=== PATIENT | female | born 1990 ===

== ENCOUNTER 2019-11-02 02:18 | Emergency (ER) | payer OTHER ==
[~2019-11-02] VITALS: Ht 157.5 cm; Wt 58.1 kg
[~2019-11-02 02:18] MED LIST: ALPRAZOLAM0.5 MG PO; CLONAZEPAM0.5 MG PO; FLEXERIL10 MG PO; LEVSIN/SL0.125 MG PO; MACROBID 100 M100 MG PO; MEDROL4 MG PO; PRILOSEC20 MG PO; PROTONIX40 MG PO; PYRIDIUM200 MG PO; SEPTRA DS TABLE1 TAB PO; SKELAXIN800 MG PO; TRAMADOL HCL-AP1 TAB PO; TYLENOL W-CODEI1 TAB PO; TYLENOL-CODEINE1 TAB PO; ZANTAC300 MG PO; ZEGERID 20 MG C1 CAP PO; ZOFRAN4 MG PO; ZOLOFT50 MG PO
[2019-11-02] MEDS ORDERED: INSULIN SYRING1 EA29 (02:30)
[2019-11-02] MEDS ORDERED: DOLOGESIC 500-1 EACH PO ×2 (06:49→06:51)
[2019-11-02] MEDS ORDERED: NASAL MIST126 ML NASAL (06:50)
== END 2019-11-02 07:06 ==
LOC: ER 02:18
DX: M54.5 Low back pain (principal)

== ENCOUNTER 2020-04-10 01:56 | Emergency (ER) | payer OTHER ==
[~2020-04-10] VITALS: Ht 154.9 cm; Wt 61.2 kg
[~2020-04-10 01:56] MED LIST changes: +DOLOGESIC 500-1 EACH PO; +INSULIN SYRING1 EA29; +NASAL MIST126 ML NASAL
[2020-04-10] MEDS ORDERED: ZOFRAN8 MG PO ×2 (07:13→07:14)
[2020-04-10] MEDS ORDERED: PEPCID40 MG PO ×2 (07:13→07:14)
[2020-04-10] MEDS ORDERED: PROTONIX40 MG PO (07:14)
== END 2020-04-10 07:25 | disposition home or self-care (01) ==
LOC: ER 01:56
DX: K29.70 Gastritis, unspecified, without bleeding (principal)